=== PATIENT | female | born 1950 | race Caucasian/White ===

== ENCOUNTER 2018-04-07 21:06 | Emergency (ER) | payer MEDICARE, BC ==
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
[2018-04-07] MEDS ORDERED: ONDANSETRON 4 MG/2 ML VIAL IVP ONE (21:20)
[2018-04-07] MEDS ORDERED: fentaNYL CITR 100 MCG/2 ML AMP IVP ONE (21:20)
[2018-04-07 21:53] LABS: PLATELET COUNT, AUTOMATED 325 K/uL (150-450)
[2018-04-07 22:08] LABS: INR 2.4
[2018-04-07] MEDS ORDERED: WARF5TAB23 PO (22:10)
[2018-04-07] MEDS ORDERED: FURO-47 PO (22:15)
[2018-04-07] MEDS ORDERED: OXYC-865 PO (22:15)
[2018-04-07] MEDS ORDERED: ASPI81TA94 PO (22:15)
[2018-04-07] MEDS ORDERED: NYST15PO4 TP (22:15)
[2018-04-07] MEDS ORDERED: METO25TA23 PO (22:15)
[2018-04-07] MEDS ORDERED: POTA-23 PO (22:15)
[2018-04-07] MEDS ORDERED: PIOG30TA71 PO (22:15)
[2018-04-07] MEDS ORDERED: HYDR-2966 PO (22:15)
[2018-04-07] MEDS ORDERED: GABA-549 PO (22:15)
[2018-04-07] MEDS ORDERED: SIMV-54 PO (22:15)
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
[2018-04-08] MEDS ORDERED: fentaNYL CITR 100 MCG/2 ML AMP IVP ONE (00:50)
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
[2018-04-08 02:00] VITALS: BP 123/53
== END 2018-04-08 02:30 | disposition home or self-care (01) ==
LOC: ER 21:40
DX: S42.017A Nondisplaced fracture of sternal end of right clavicle, initial encounter for closed fracture (principal); M25.572 Pain in left ankle and joints of left foot; M25.571 Pain in right ankle and joints of right foot; V86.59XA Driver of other special all-terrain or other off-road motor vehicle injured in nontraffic accident, initial encounter
CPT/HCPCS: 70450; 71046; 72125; 73030; 73600; 73630; 81001; 83690; 85025; 85610; 85730; 96374; 96375; 99285; A4353; A4565; G0480; J2405; J3010; L0172; 80320; 82040; 82247; 82310; 82374; 82435; 82565; 82947; 84075; 84132; 84155; 84295; 84450; 84460; 84520